=== PATIENT | female | born 1960 | race Hispanic/Latino ===

== ENCOUNTER → 2017-02-10 | Day surgery (SDC) | payer OTHER ==
[~2017-02-10] VITALS: Ht 157.5 cm; Wt 56.2 kg
[~2017-02-10] MED LIST: ASPIRIN CHILDRE81 MG PO; NORCO 325 MG-51 TAB PO
--- NOTE | 2017-02-10 13:00 | Operative Report ---
Operative/Inv Procedure Report Surgery Date: 02/10/17 Name of Procedure: right ureter ESWL. fluorosocopy Pre-Operative Diagnosis: right renal stone-moved to right ureter: mild hydro Post-Operative Diagnosis: same Estimated Blood Loss: none Surgeon/Silk Winding Machine Operator: JUANPABLO CASTRO MD Anesthesia: moderate sedation Specimens: none Complications: none Operative/Procedure Note Note: The patient was taken to the operating room and placed on the ESWL table in supine position. With the patient awake, timeout was performed to cofirm correct identity, procedure, laterality, anesth., and other pertinent aniceto- operative information. The patient's RIGHT flank was placed over the table cut -out, overlying the dome of the shockwave generator. C-arm fluroscopy, as well as renal US, was used to locate the stone, and evaluate the RIGHT kidney. The stone was clearly visible on fluoroscopy at the distal right ureter, measuring approximately 5 mm. Renal US confirmedd mild hydronephrosis, and no additional stone, no tumor, seen in the right kidney. After adequate anesthesia, the right ureter stone's position was optimized for Shockwave lithotrypsy using fluoroscopy in AP and oblique views. The E.S.W.L. was initiated at low power levels x 200 shocks. After noting the patient's tolerance to the shockwaves, the shock wave power level was quickly maximized. Toward the end of the procedure, the composition of the stone had changed significantly indicating the pulverization of the ureter stone. A total of 3000 shockwaves were delivered to the stone in order to achieve adequate lithotrypsy. The patient tolerated both the procedure well, was awakened, and taken to recovery in satisfactory condition via stretcher. The pt will be dischared home with pain meds, diet orders, and intructions to catch fragments with straining the urine. The patient is to have follow-up renal ultrasound and KUB in 1-2 weeks, prior to follow-up visit in my office. Discharge Disposition: Same Day Admissions CC: JUANPABLO CASTRO MD
== END ==
LOC: STS 03:37
DX: N13.2 Hydronephrosis with renal and ureteral calculous obstruction (principal)
CPT/HCPCS: J2250

== ENCOUNTER → 2017-12-30 | Day surgery (SDC) | payer OTHER ==
[~2017-12-30] VITALS: Ht 157.5 cm; Wt 55.8 kg
[~2017-12-30] MED LIST changes: +BACTRIM DS TAB1 EACH PO; +IBUPROFEN800 M1 PO; +KEFLEX500 M1 PO; +URIBEL CAPSULE1 EACH PO
--- NOTE | 2018-01-06 09:27 | Operative Report ---
Operative/Inv Procedure Report Surgery Date: 12/30/17 Name of Procedure: Marsupialization left Bartholin's cyst Pre-Operative Diagnosis: Left Bartholin's cyst Post-Operative Diagnosis: Same Estimated Blood Loss: less than 50ml Surgeon/Wall Steamer: Jasvir Deng MD Anesthesia: local monitored anesthesi Operative/Procedure Note Note: The patient was taken to the OR and placed on the OR table in the dorsal supine position. She was given adequate anesthesia and repositioned in modified dorsal lithotomy. She was prepped and draped in usual sterile fashion. Examination under anesthesia revealed a small left Bartholin's cyst. This was injected with 1% lidocaine. A vaginal incision was made above the cyst. The cyst wall was opened and sewn to the vaginal wall using 3-0 Polysorb in a running locking fashion. At the end of the procedure hemostasis was good solid name cream was placed on the one patient was then awakened and sent to recovery in good condition. All needle, sponge, and management counts were correct at the end of the procedure 2.
== END ==
LOC: STS 12-22 07:00
DX: N75.0 Cyst of Bartholin's gland (principal)
CPT/HCPCS: 88304; J1885; J2250